=== PATIENT | male | born 1965 | race Caucasian/White ===

== ENCOUNTER 2020-10-06 03:23 | Emergency (ER) | payer OTHER ==
[~2020-10-06 03:23] MED LIST: CLEOCIN HCL300 MG PO; ERYTHROMYCIN O3.5 GM OU; Magic Mouth Wash PO; ZITHROMAX TRI-500 MG PO; [UNRECOGNIZED DRUG - OTHER]
[2020-10-06 04:07] LABS: HEMOGLOBIN 14.2 gm/dl (14.0-17.5); RED BLOOD COUNT 4.44 M/UL (4.20-5.50); WHITE BLOOD COUNT 5.4 K/UL (4.5-11.0)
[2020-10-06 04:56] LABS: BUN/CREATININE RATIO 32 (0-10)
[2020-10-06] MEDS ORDERED: CLEOCIN HCL300 MG PO (09:37)
== END 2020-10-06 09:40 | disposition home or self-care (01) ==
LOC: ER1 03:23
PROVIDERS: Physician Assistant
DX: R07.89 Other chest pain (principal); K04.7 Periapical abscess without sinus; R06.02 Shortness of breath; I10 Essential (primary) hypertension; K21.9 Gastro-esophageal reflux disease without esophagitis; Z88.0 Allergy status to penicillin; Z98.890 Other specified postprocedural states
CPT/HCPCS: 71046; 80053; 82550; 82553; 83874; 84484; 85025; 93005; 99285

== ENCOUNTER 2020-10-28 05:15 | Emergency (ER) | payer OTHER ==
[2020-10-28 06:05] LABS: HEMOGLOBIN 14.6 gm/dl (14.0-17.5); RED BLOOD COUNT 4.53 M/UL (4.20-5.50); WHITE BLOOD COUNT 8.5 K/UL (4.5-11.0)
[2020-10-28 06:24] LABS: BUN/CREATININE RATIO 29 (0-10)
== END 2020-10-28 11:32 | disposition home or self-care (01) ==
LOC: ER1 05:15
DX: I72.8 Aneurysm of other specified arteries (principal); I10 Essential (primary) hypertension; Z90.49 Acquired absence of other specified parts of digestive tract; Z90.89 Acquired absence of other organs; Z82.79 Family history of other congenital malformations, deformations and chromosomal abnormalities; Z88.0 Allergy status to penicillin; Z88.2 Allergy status to sulfonamides
CPT/HCPCS: 71275; 80053; 81001; 82550; 82553; 83690; 83874; 84484; 85025; 85379; 93005; 96374; 96375; 99284; J2270; J2405; J7030; Q9967

== ENCOUNTER → 2021-04-25 | Outpatient (CLI) | payer OTHER | LOC: EXRD 08:52 | DX: M25.542 Pain in joints of left hand (principal); M25.541 Pain in joints of right hand; M25.562 Pain in left knee; M25.561 Pain in right knee; R76.8 Other specified abnormal immunological findings in serum; M17.12 Unilateral primary osteoarthritis, left knee; M19.042 Primary osteoarthritis, left hand | CPT/HCPCS: 73130; 73564 ==

== ENCOUNTER 2021-07-14 12:43 | Inpatient (IN) | payer OTHER ==
[~2021-07-14] VITALS: Ht 195.6 cm; Wt 87.8 kg
[2021-07-14] MEDS ORDERED: LOPRESSOR 25 MG25 MG PO (13:01)
[2021-07-14] MEDS ORDERED: ACIPHEX20 MG PO (13:06)
[2021-07-14 14:35] LABS: HEMOGLOBIN 14.6 gm/dl (14.0-17.5); RED BLOOD COUNT 4.47 M/UL (4.20-5.50); WHITE BLOOD COUNT 8.2 K/UL (4.5-11.0)
[2021-07-14 14:51] LABS: BUN/CREATININE RATIO 31 (0-10)
[2021-07-15 02:06] LABS: HEMOGLOBIN 13.9 gm/dl (14.0-17.5); RED BLOOD COUNT 4.26 M/UL (4.20-5.50)
[2021-07-15 02:09] LABS: WHITE BLOOD COUNT 5.1 K/UL (4.5-11.0)
[2021-07-15 02:33] LABS: BUN/CREATININE RATIO 36 (0-10)
[2021-07-15] MEDS ORDERED: METOPROLOL SUCC50 MG PO (13:44)
[2021-07-15] MEDS ORDERED: ASPIRIN81 MG PO (13:44)
== END 2021-07-15 16:32 | disposition home or self-care (01) | DRG 305 ==
LOC: PROG CARE 12:43
PROVIDERS: ADMIT Internal Medicine
PROC: B24BZZZ Ultrasonography of Heart with Aorta (ICD-10-PCS; principal; 2021-07-15)
DX: I16.0 Hypertensive urgency (principal); Q87.40 Marfan syndrome, unspecified; I10 Essential (primary) hypertension; E78.5 Hyperlipidemia, unspecified; I72.8 Aneurysm of other specified arteries; Z20.822 Contact with and (suspected) exposure to COVID-19; Z86.73 Personal history of transient ischemic attack (TIA), and cerebral infarction without residual deficits; Z79.01 Long term (current) use of anticoagulants; Z79.82 Long term (current) use of aspirin; Z90.49 Acquired absence of other specified parts of digestive tract; Z87.442 Personal history of urinary calculi; Z88.5 Allergy status to narcotic agent; Z91.010 Allergy to peanuts; Z82.49 Family history of ischemic heart disease and other diseases of the circulatory system; Z82.3 Family history of stroke; Z84.89 Family history of other specified conditions
CPT/HCPCS: ECHO; 36415; 78452; 80053; 80061; 82550; 82553; 83036; 84443; 84484; 85025; 93005; 93017; 93306; A9502; J1650; J2270

== ENCOUNTER 2022-04-10 08:41 | Emergency (ER) | payer OTHER ==
[~2022-04-10 08:41] MED LIST changes: +ACIPHEX20 MG PO; +ASPIRIN81 MG PO; +LOPRESSOR 25 MG25 MG PO; +METOPROLOL SUCC50 MG PO
[2022-04-10 09:28] LABS: HEMOGLOBIN 13.7 gm/dl (14.0-17.5); RED BLOOD COUNT 4.21 M/UL (4.20-5.50)
[2022-04-10 09:49] LABS: BUN/CREATININE RATIO 31 (0-10)
[2022-04-10] MEDS ORDERED: NORVASC5 MG PO (13:11)
== END 2022-04-10 13:48 | disposition home or self-care (01) ==
LOC: ER1 08:41
PROVIDERS: Student in an Organized Health Care Education/Training Program
DX: I10 Essential (primary) hypertension (principal); Z88.0 Allergy status to penicillin
CPT/HCPCS: 71275; 80053; 82550; 82553; 84484; 85025; 99284; Q9967